=== PATIENT | female | born 1940 | race African-American/Black ===

== ENCOUNTER → 2016-09-27 | Outpatient (CLI) | payer MEDICARE, OTHER ==
[~2016-09-27] MED LIST: ACETAMINOPHEN PO; ACTOS PO; ADVAIR 115-21 INH; ALBUTEROL17 G1 IH; ALBUTEROL17 GM INH; AMBIEN PO; AMLODIPINE BESY10 MG PO; APRESOLINE PO; ASPIRIN PO; ASPIRIN325 M1 PO; ASPIRINEC PO; ATENOLOL PO; ATORVASTATIN CA10 MG PO; BYETTA10 MCG/0.0 INJ; CIPRO PO; CLOPIDOGREL75 MG PO; COUMADIN1 MG PO; COUMADIN10 MG; COUMADIN5 MG PO; COUMADIN7.5 MG; CRESTOR40 MG PO; DIABETA5 M1 PO; DIOVAN HCT 160/1 TAB PO; DIOVAN320 MG PO; DOXYCYCLIN25 MG/5 ML PO; ECOTRIN325 MG PO; FLONASE16 GM; FOLAST TABLET1 EACH PO; GABAPENTIN300 MG PO; GLUCOPHAGE XR500 MG PO; GLUCOTROL XL PO; GLYBURIDE PO; HYDRALAZINE HCL50 MG PO; HYZAAR PO; JANUVIA PO; JANUVIA50 MG PO; LASIX PO; LASIX20 MG PO; LEVAQUIN PO; LEVAQUIN750 MG PO; LIPITOR PO; LISINOPRIL PO; LOPRESSOR PO; LORTAB 10/500 T1 TAB PO; LORTAB 5/500 TA1 TA1 PO; LORTAB 7.5-5001 TAB PO; METANX TABLET1 TA1 PO; METHIMAZOLE5 MG PO; METOPROLOL TAR25 MG PO; MICRONASE5 M1 PO; MICRONASE5 M2 PO; MIRALAX17 GM PO; MULTIVITAMIN W/1 TAB PO; NIASPAN PO; NORVASC PO; NORVASC10 MG PO; PERCOCET 5-3251 TAB PO; PLAVIX PO; POSTURE600 MG PO; POTASSIUM CHLO10 MEQ PO; POTASSIUM1 UDCAP.SA PO; PREDNISONE10 MG/DOSE PO; ROBITUSSIN-DM118 M1 PO; SYNTHROID88 MCG PO; TAPAZOLE5 MG PO; TOPROL XL 50 MG50 M1 PO; TOPROL XL PO; TYLENOL325 M1 PO; VICTOZA0.6 MG/0.1 SUBQ; ZANTAC150 MG PO; ZITHROMAX500 MG PO; [UNRECOGNIZED DRUG - OTHER] PO; [UNRECOGNIZED DRUG - OTHER] PO
--- NOTE | ~2016-09-27 | US136 ---
[facility] A Service of [facility] & [facility] RADIOLOGY TEXT RESULTS PATIENT: KAE MIN LOCATION: CNIV : 40 UNIT #: [id number] AGE: [address]: Mikie aMnuel DPM SEX: F ORDER DR: [id number] [facility] [address] [place], [place] [address] [id number] O MR#: [id number] Acc #: [id number] NAME: KAE MIN : 1940 SEX: F STUDY DATE/TIME: 09/27/2016 9:39 UNIT: CNIV ROOM: STUDY DESCRIPTION: U/L Ext Art Study Ltd Bil Attending Physician: Mikie Manuel D.P.M. Referring Physician: Mikie Manuel D.P.M. Ordering Physician: Mikie Manuel D.P.M. Primary Care Physician: Kirit Medina M.D. MEDICAL IMAGING REPORT This report is preliminary unless electronic signature is present EXAM Bilateral ankle-brachial indices. INDICATION Numbness, tingling and edema in both lower extremities. Patient has a prior history of left great toe amputation. TECHNIQUE Sequential pressures were obtained of both lower extremities. Pulse volume recordings were generated. FINDINGS Patient's ankle-brachial indices are markedly abnormal bilaterally measuring 0.47 at the dorsalis pedis artery on the right and 0.52 at the posterior tibial artery on the right. The ankle-brachial index at the posterior tibial artery on the left is 0.56. It could not be obtained at the dorsalis pedis artery, secondary to complains of pain by the patient. The patient is status post left great toe amputation. Toe-brachial index within the right great toe is severely diminished at 0.28. There is also severe damping of pulse volume recordings. IMPRESSION. 1. This patient's ankle-brachial indices are severely diminished bilaterally suggesting multiple levels of arterial disease. Further evaluation with CT angiography of the abdomen and pelvis with bilateral lower extremity runoff is suggested. 2. Severely diminished toe-brachial index on the right. I am uncertain if this reflects small vessel disease or inflow disease or a combination of both. STAT * RESULT [facility] A Service of [facility] & [facility] RADIOLOGY TEXT RESULTS PATIENT: KAE MIN [id number] : [birth year] UNIT #: [id number] AGE: [address]: Mikie Manuel DPM SEX: F ORDER DR: Dictated by... Shae Franklin M.D. THIS IS AN ELECTRONICALLY VERIFIED REPORT Shae Franklin M.D. at 10/03/2016 10:47 AM ANGELA/boy TD: 10/03/2016 10:18 JOB #: [id number] MEDICAL IMAGING REPORT COPY
== END | disposition home or self-care (01) ==
LOC: CNIV 09:21
DX: I73.9 Peripheral vascular disease, unspecified (principal)
CPT/HCPCS: 93922

== ENCOUNTER → 2017-02-18 | Day surgery (SDC) | payer MEDICARE, OTHER ==
--- NOTE | ~2017-02-18 | OR ---
Unit #: [id number] #: [id number] Patient: KAE MIN [id number] [address] [address] [id number] O MR#: [id number] NAME: KAE MIN ROOM: Date of Procedure: 02/18/2017 Admission Date: 02/18/2017 Surgeon: Chris Ibarra M.D. : 1940 Attending Physician: Chris Ibarra M.D. Primary Care Physician: Kirit Medina M.D. OPERATIVE REPORT PREOPERATIVE DIAGNOSES 1. Constipation. 2. Weight loss. POSTOPERATIVE DIAGNOSES 1. Constipation. 2. Weight loss. PROCEDURE PERFORMED Colonoscopy to cecum. ANESTHESIA Monitored anesthesia care. FINDINGS The patient was found to have a normal colon to the cecum other than mild internal hemorrhoids. SPECIMENS None. COMPLICATIONS None apparent. CONDITION The patient tolerated the procedure well. INDICATIONS FOR PROCEDURE The patient is a 76-year-old white female, whose has history of constipation. She presents at this time for evaluation by colonoscopy. She also has had some weight loss, although she has been trying to lose weight. DESCRIPTION OF PROCEDURE After obtaining informed consent, the patient was brought to the endoscopy suite and after adequate monitored anesthesia care, had the colonoscope placed through the anus and slowly advanced to the level of cecum without difficulty with lumen always in view. The cecum was normal as was the ileocecal valve. The ascending colon was normal as was the hepatic flexure, transverse colon, splenic flexure, descending colon, sigmoid colon, and rectum. On retroflexing in the rectum to the anorectal junction, the patient was found to have some [id number] internal Unit #: [id number] #: [id number] Patient: KAE MIN hemorrhoids. The scope was removed without difficulty. On digital examination, the patient had a very lax sphincter tone. The patient tolerated the procedure well and went from the endoscopy suite to recovery area in stable condition. RECOMMENDATIONS High-fiber diet, lots of liquids, tucks or wipes p.r.n. Follow up as needed. Dictated by... Chris Ibarra M.D. DELILAH/pascual TD: 02/18/2017 18:39 JOB #: [id number] [facility] OPERATIVE REPORT Page 1 of 1 X Chris Ibarra MD PROCEDURE OPERATIVE NOTE
== END | disposition home or self-care (01) ==
LOC: COPS 11:44
DX: K64.8 Other hemorrhoids (principal); K59.00 Constipation, unspecified; R63.4 Abnormal weight loss; I25.10 Atherosclerotic heart disease of native coronary artery without angina pectoris; J45.909 Unspecified asthma, uncomplicated; M19.90 Unspecified osteoarthritis, unspecified site; I11.0 Hypertensive heart disease with heart failure; I50.9 Heart failure, unspecified; E11.9 Type 2 diabetes mellitus without complications; E89.0 Postprocedural hypothyroidism; E78.00 Pure hypercholesterolemia, unspecified; Z68.34 Body mass index [BMI] 34.0-34.9, adult; Z88.8 Allergy status to other drugs, medicaments and biological substances; Z86.73 Personal history of transient ischemic attack (TIA), and cerebral infarction without residual deficits; Z86.010 Personal history of colon polyps; Z79.82 Long term (current) use of aspirin; Z79.01 Long term (current) use of anticoagulants; Z79.899 Other long term (current) drug therapy; Z95.5 Presence of coronary angioplasty implant and graft; Z98.890 Other specified postprocedural states; Z90.710 Acquired absence of both cervix and uterus
CPT/HCPCS: 82947